=== PATIENT | male | born 1985 | race Two or more races ===

== ENCOUNTER 2019-08-25 15:55 | Emergency (ER) | payer OTHER ==
[~2019-08-25] VITALS: Ht 172.7 cm; Wt 81.8 kg
[2019-08-25] MEDS ORDERED: ACET-683 PO (16:01)
[2019-08-25] MEDS ORDERED: diphenhydrAMINE INJ 50MG/ML VIAL (J1200) IV ONE (18:00)
[2019-08-25] MEDS ORDERED: METOCLOPRAMIDE INJ 10MG/2ML VIAL (J2765) IV ONE (18:00)
[2019-08-25] MEDS ORDERED: KETOROLAC 30 MG/ML VIAL (J1885) IV ONE (18:00)
--- NOTE | 2019-08-25 18:16 | REPVR ---
PROCEDURE INFORMATION: Exam: CT Head Without Contrast Exam date and time: 08/25/2019 5:58 PM Clinical history: 33 years old, male; Pain; Headache; Other: Occipital; Additional info: Occipital [place], neck pain, no jerrod, no prev. HX TECHNIQUE: Imaging protocol: Computed tomography of the head without contrast. Radiation optimization: All CT scans at this facility use at least one of these dose optimization techniques: automated exposure control; mA and/or kV adjustment per patient size (includes targeted exams where dose is matched to clinical indication); or iterative reconstruction. COMPARISON: No relevant prior studies available. FINDINGS: Brain: No hemorrhage. Unremarkable white matter for the patient's age. No mass effect. No evolving territorial infarct. Ventricles: No ventriculomegaly. Mild size asymmetry of the lateral ventricles, likely physiologic. Bones/joints: Unremarkable. No acute fracture. Sinuses: Visualized sinuses are unremarkable. No fluid levels. Mastoid air cells: Visualized mastoid air cells are well aerated. Soft tissues: Unremarkable. IMPRESSION: No acute intracranial abnormality seen. Electronically signed by: Dilia Martin On 08/25/2019 18:16:03 PM
[2019-08-25 18:23] LABS: BASO # 0.1 10^3/uL (0.0-0.2); BASO % 0.8 % (0.0-1.0); EOS % 0.5 % (0.0-3.0); HEMATOCRIT 47.6 % (42.0-52.0); HEMOGLOBIN 15.9 g/dl (13.5-17.5); LYMPH # 3.1 10^3/uL (1.5-5.0); LYMPH % 37.3 % (24.0-44.0); MEAN CORPUSCULAR HEMOGLOBIN 29.6 pg (27.0-33.0); MEAN CORPUSCULAR HGB CONC 33.4 g/dl (32.0-36.5); MEAN CORPUSCULAR VOLUME 88.5 fl (80.0-96.0); MONO # 0.5 10^3/uL (0.0-0.8); MONO % 5.6 % (0.0-5.0); NEUTROPHILS # 4.6 10^3/uL (1.5-8.5); NEUTROPHILS % 55.4 % (36.0-66.0); PLATELET COUNT, AUTOMATED 408 10^3/uL (150-450); RED BLOOD COUNT 5.38 10^6/uL (4.30-6.10); WHITE BLOOD COUNT 8.4 10^3/uL (4.0-10.0)
[2019-08-25 20:29] VITALS: BP 140/89
== END 2019-08-25 20:39 | disposition home or self-care (01) ==
LOC: M ED 15:55
DX: R51 Headache (principal)
CPT/HCPCS: 70450; 80047; 85025; 96374; 96375; 99284; J1200; J1885; J2765

== ENCOUNTER 2020-04-28 15:56 | Emergency (ER) | payer OTHER ==
[~2020-04-28] VITALS: Ht 175.3 cm; Wt 80.0 kg
[~2020-04-28 15:56] MED LIST: ACET-683 PO
[2020-04-28] MEDS ORDERED: HYDR12CA (16:02)
[2020-04-28] MEDS ORDERED: ATOR1TAB21 (16:03)
[2020-04-28] MEDS ORDERED: GABA-843 (16:03)
[2020-04-28] MEDS ORDERED: NS 1,000 ML IV ONE (18:15)
[2020-04-28 18:52] LABS: BASO # 0.1 10^3/uL (0.0-0.2); BASO % 0.7 % (0.0-1.0); EOS # 0.2 10^3/uL (0.0-0.5); EOS % 1.7 % (0.0-3.0); HEMATOCRIT 46.5 % (42.0-52.0); HEMOGLOBIN 15.2 g/dl (13.5-17.5); LYMPH # 2.9 10^3/uL (1.5-5.0); LYMPH % 27.9 % (24.0-44.0); MEAN CORPUSCULAR HEMOGLOBIN 28.2 pg (27.0-33.0); MEAN CORPUSCULAR HGB CONC 32.7 g/dl (32.0-36.5); MEAN CORPUSCULAR VOLUME 86.3 fl (80.0-96.0); MONO # 0.8 10^3/uL (0.0-0.8); MONO % 7.4 % (0.0-5.0); NEUTROPHILS # 6.4 10^3/uL (1.5-8.5); PLATELET COUNT, AUTOMATED 504 10^3/uL (150-450); RED BLOOD COUNT 5.39 10^6/uL (4.30-6.10); WHITE BLOOD COUNT 10.2 10^3/uL (4.0-10.0)
[2020-04-28 19:04] LABS: INR 1.01
[2020-04-28 19:05] LABS: PARTIAL THROMBOPLASTIN TIME 35.8 SECONDS (25.0-38.4)
[2020-04-28] MEDS ORDERED: ISOVUE-370 76% 100ML VIAL As Ordered ONE (19:10)
[2020-04-28 19:11] LABS: ERYTHROCYTE SEDIMENTATION RATE 5 mm/hr (0-15)
[2020-04-28 19:19] LABS: ALT/SGPT 27 U/L (12-78); BILIRUBIN,DIRECT 0.1 MG/DL (0.0-0.2); BILIRUBIN,TOTAL 0.3 MG/DL (0.2-1.0); C REACTIVE PROTEIN QUANTITATIV 1.99 MG/DL (0.00-0.30); CK-MB VALUE MASS < 1.0 NG/ML (<3.6); CPK CREATINE PHOSPHOKINASE 146 U/L (39-308); LIPASE 124 U/L (73-393); MB/CK RELATIVE INDEX 0.68 (< OR =4); TOTAL PROTEIN 8.7 GM/DL (6.4-8.2); TROPONIN I < 0.02 NG/ML (< 0.10)
--- NOTE | 2020-04-28 19:55 | REPVR ---
PROCEDURE INFORMATION: Exam: CT Angiography Chest With Contrast Exam date and time: 04/28/2020 7:29 PM Age: 34 years old Clinical indication: Chest pain; Additional info: R/O pe TECHNIQUE: Imaging protocol: Computed tomographic angiography of the chest with intravenous contrast. 3D rendering: MIP and/or 3D reconstructed images were created by the technologist. Radiation optimization: All CT scans at this facility use at least one of these dose optimization techniques: automated exposure control; mA and/or kV adjustment per patient size (includes targeted exams where dose is matched to clinical indication); or iterative reconstruction. Contrast material: ISOVUE 370; Contrast volume: 75 ml; Contrast route: INTRAVENOUS (IV); COMPARISON: CR Chest, 2 view PA, Lat 04/28/2020 4:35 PM FINDINGS: Pulmonary arteries: There are no pulmonary emboli. Aorta: There is no aortic dissection or aneurysm. Lungs: Bibasilar atelectasis. Remaining lungs are clear. Pleural space: Small right pleural effusion. Minimal pleural thickening in the left mid and lower lung zone. Heart: Small pericardial effusion. Mediastinal space: Large anterior superior soft tissue mediastinal mass measures 8.5 x 4.5 x 6.3 cm. Mass surrounds and encases the brachiocephalic, left common carotid, proximal left subclavian artery, an anterior aortic arch without significant vascular compression. Lymph nodes: Retrocaval pretracheal lymph node measures 1.2 cm. Enlarged lymph nodes in the left suprahilar region and AP window. Specifically, no axillary or right hilar lymphadenopathy. Gallbladder and bile ducts: The gallbladder is incompletely distended. This is most likely related to incomplete fasting. Clinical correlation to exclude gallbladder pathology suggested. Bones/joints: Unremarkable. No acute fracture. Soft tissues: Unremarkable. IMPRESSION: 1. Small right pleural effusion. Minimal pleural thickening in the left mid and lower lung zone. 2. Anterior superior mediastinal mass. Mediastinal and left suprahilar adenopathy. Differential diagnosis includes invasive thymoma, lymphoma, and least likely metastatic disease of other etiology. 3. Small pericardial effusion. 4. The gallbladder is incompletely distended. This is most likely related to incomplete fasting. Clinical correlation to exclude gallbladder pathology suggested. 5. There is no aortic dissection or aneurysm. 6. There are no pulmonary emboli. Electronically signed by: Behzad Coffey On 04/28/2020 19:55:21 PM
--- NOTE | 2020-04-28 21:40 | ECGEPIP ---
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
[2020-04-29] VITALS: BP 135/82
--- NOTE | 2020-04-29 15:05 | REP ---
CHEST, TWO VIEWS: Two views of the chest are performed. There is no acute infiltrate. Soft tissue density in the superior mediastinum and hilar regions is most consistent with adenopathy. The heart is not enlarged. IMPRESSION: Findings compatible with mediastinal and probably hilar adenopathy. No infiltrate in either lung. Electronically Signed by Jace Mehta MD 04/30/2020 11:35 P
== END 2020-04-29 00:03 | disposition short-term general hospital (02) ==
LOC: M ED 15:56
DX: J90 Pleural effusion, not elsewhere classified (principal); J98.59 Other diseases of mediastinum, not elsewhere classified; I10 Essential (primary) hypertension; E78.5 Hyperlipidemia, unspecified; G62.9 Polyneuropathy, unspecified; Z79.899 Other long term (current) drug therapy
CPT/HCPCS: 36415; 71046; 71275; 80047; 80076; 82550; 82553; 83690; 84484; 85025; 85610; 85652; 85730; 86140; 93005; 96360; 96361; 99285; Q9967